=== PATIENT | female | born 1975 | race Asian ===

== ENCOUNTER → 2021-02-15 12:00 | Outpatient (CLI) | payer OTHER, SELFPAY ==
[2021-02-15] MEDS: COVID-19 VACC #1, MRNA(MOD) 100 MCG/0.5 ML VIAL IM (12:10)
== END ==
PROVIDERS: Visit Provider Internal Medicine
DX: Z23 Encounter for immunization (principal)
CPT/HCPCS: 0011A; 91301

== ENCOUNTER → 2021-03-15 11:49 | Outpatient (CLI) | payer OTHER, SELFPAY ==
[2021-03-15] MEDS: COVID-19 VACC #2, MRNA(MOD) 100 MCG/0.5 ML VIAL IM (12:04)
== END ==
PROVIDERS: Visit Provider Internal Medicine
DX: Z23 Encounter for immunization (principal)
CPT/HCPCS: 0012A; 91301